=== PATIENT | male | born 1950 | race Caucasian/White ===

== ENCOUNTER 2017-08-29 11:10 | Inpatient (IN) ==
--- NOTE | 2017-08-28 21:08 | Discharge Summary ---
<Claire Curiel - Last Filed: 08/28/17 21:06> Date of Encounter: 08/28/17 - Discharge Diagnosis (1) Rotator cuff tear arthropathy of right shoulder Priority: Primary Status: Chronic (2) CAD (coronary artery disease) Priority: Secondary Status: Chronic Qualifiers: Coronary Disease-Associated Artery/Lesion type: unspecified vessel or lesion type [place] vs. transplanted heart: unspecified whether [place] or transplanted heart Associated angina: angina presence unspecified Qualified Code(s): I25.10 - Atherosclerotic heart disease of [place] coronary artery without angina pectoris (3) GERD (gastroesophageal reflux disease) Priority: Secondary Status: Chronic Qualifiers: Esophagitis presence: esophagitis presence not specified Qualified Code(s) : K21.9 - Gastro-esophageal reflux disease without esophagitis (4) Hypertension Priority: Secondary Status: Chronic Qualifiers: Hypertension type: unspecified Qualified Code(s): I10 - Essential (primary ) hypertension - Discharge Medications Home Medications: Aspirin Enteric Coated [Aspirin EC] 81 mg PO DAILY #30 tablet.dr 07/18/15 [Rx] Atorvastatin [Lipitor] 40 mg PO HS #30 tablet 07/18/15 [Rx] Lisinopril [Zestril] 10 mg PO DAILY #30 tablet 07/18/15 [Rx] Metoprolol [Lopressor] 25 mg PO BID #60 tablet 07/18/15 [Rx] Nitroglycerin [Nitrostat] 0.4 mg SL Q5-6MIN PRN #15 tab.subl 07/18/15 [Rx] OxyCODONE Immed Rel [Roxicodone 5 MG] 5 mg PO Q6HR PRN 7 Days #28 tablet [Rx] Omeprazole [PriLOSEC] 20 mg PO DAILY 08/29/17 [History] Potassium 99 mg PO DAILY 08/29/17 [History] Allergies/Adverse Reactions: 3 Allergy/AdvReac Type Severity Reaction Status Date / Time No Known Allergies Allergy Verified 08/29/17 13:08 Primary care physician: John Carranza - Patient Status Disposition: Home, Self-Care Condition: Good - Discharge Instructions Follow Up With: Claire Curiel PAC [Physician Bog Worker] - 09/06/17 9:15 am (& also, , September 13, 2017 at 2:00 PM) Gregory Loyola MD [Partnered Physician] - 09/26/17 5:55 pm John Carranza DO [Primary Care Provider] - Lillian Louie MD [Partnered Physician] - 11/09/17 2:15 pm - Hospital Course Hospital course: Mr. Peres is a 66 year old male - Time Spent with Patient Total time spent providing and/or coordinating discharge services: <Gregory Loyola - Last Filed: 08/30/17 09:32> Date of Encounter: 08/30/17 Time of Encounter: 09:32 - Discharge Diagnosis (1) Status post reverse total replacement of right shoulder Priority: Primary Status: Acute (2) NSTEMI (non-ST elevated myocardial infarction) Priority: Secondary Status: Chronic (3) Hypertension Priority: Secondary Status: Chronic Qualifiers: Hypertension type: unspecified Qualified Code(s): I10 - Essential (primary ) hypertension (4) GERD (gastroesophageal reflux disease) Priority: Secondary Status: Chronic Qualifiers: Esophagitis presence: without esophagitis Qualified Code(s): K21.9 - Gastro -esophageal reflux disease without esophagitis (5) Rotator cuff tear arthropathy of right shoulder Priority: Primary Status: Chronic (6) CAD (coronary artery disease) Priority: Secondary Status: Chronic Qualifiers: Coronary Disease-Associated Artery/Lesion type: unspecified vessel or lesion type [place] vs. transplanted heart: unspecified whether [place] or transplanted heart Associated angina: angina presence unspecified Qualified Code(s): I25.10 - Atherosclerotic heart disease of [place] coronary artery without angina pectoris (7) GERD (gastroesophageal reflux disease) Priority: Secondary Status: Chronic Qualifiers: Esophagitis presence: esophagitis presence not specified Qualified Code(s) : K21.9 - Gastro-esophageal reflux disease without esophagitis Primary care physician: John Carranza - Patient Status Functional capacity at discharge: independent ambulation Overall status at discharge: patient is progressing back to baseline - Hospital Course Hospital course: Mr. Peres is a 66 year old male Status post right total shoulder replacement The patient had an uneventful postoperative course. They received antibiotics and physical therapy and were discharged in stable condition. There will follow -up in the office in 2 weeks. - Time Spent with Patient Total time spent providing and/or coordinating discharge services:
--- NOTE | 2017-08-29 12:13 | Anesthesia Evaluation PreOp ---
Date of Encounter: 08/29/17 Time of Encounter: 12:11 - Past History Planned Operation: Right Total Shoulder Cardiac History: [place] ([place]), HTN, Cardiac Stent (x 1 2014 Mid [place]) Pulmonary History: Denies Any Significant HX [employer] History: Denies Any Significant HX Other Medical History: Denies Any Significant HX, GERD Anesthesia History: No Prior Anesthetic Complications, Past Anesthesia Alcohol Use: none Drug use: none Medications and Allergies Aspirin Enteric Coated [Aspirin EC] 81 mg PO DAILY #30 tablet. 07/18/15 [Rx] Atorvastatin [Lipitor] 40 mg PO HS #30 tablet 07/18/15 [Rx] Clopidogrel [Plavix] 75 mg PO DAILY #30 tablet 07/18/15 [Rx] Lisinopril [Zestril] 10 mg PO DAILY #30 tablet 07/18/15 [Rx] Metoprolol [Lopressor] 25 mg PO BID #60 tablet 07/18/15 [Rx] Nitroglycerin [Nitrostat] 0.4 mg SL Q5-6MIN PRN #15 tab.subl 07/18/15 [Rx] Pantoprazole Sodium [Protonix] 40 mg PO DAILY 30 Days tablet. 07/18/15 [Rx] OxyCODONE Immed Rel [Roxicodone 5 MG] 5 mg PO Q6HR PRN 7 Days #28 tablet [Rx] 3 Allergy/AdvReac Type Severity Reaction Status Date / Time No Known Allergies Allergy Verified 07/16/15 22:29 - Meds/Allergy Pre-op Review Medications Reviewed: Yes Allergies Reviewed: Yes Beta Blockers on Current Med List: No Anesthesia Results - Labs Laboratory Tests 08/13/17 08/13/17 08/13/17 15:21 15:21 15:21 WBC 4.4 Hgb 14.2 Hct 43.0 Plt Count 231 INR 1.0 Sodium 140 Potassium 4.1 Chloride 106 Carbon Dioxide 28 BUN 17 Creatinine 0.83 Echocardiogram Date of Study: 05/16/2016 Date: 1950 Impressions: LVEF 60%. Normal wall motion. Normal left ventricular size and systolic function. There is evidence of mild diastolic dysfunction of the left ventricle. Normal right ventricular size and function. Mild aortic regurgitation. Mild mitral regurgitation. Mild pulmonic regurgitation. Estimated RVSP was 19 mmHg. No pulmonary hypertension. Date of Study: 07/17/2015 LEFT HEART CATH Stent w/ PTCA Single Major Vessel Indications: Non-Stemi Impressions: There is severe one vessel coronary artery disease. The left ventricle is normal and has abnormal contractility EF 35% Patient had successful PTCA/Drug-Eluting Stent placement in the mid LAD. Recommendations: Optimal medical therapy of patient's disease. - Imaging EKG: report reviewed (SR) Anesthesia Exam Height: 5'10'' Weight: 171# NPO (# of Hours): > 8 hrs Pain Scale: 0 Pain Scale Used: Numeric (1 - 10) - HEENT Pupil (Motor): Pupils equal, EOMI Mallampati: II Teeth: Normal Oral Opening: Greater than 3 - [employer] LOC: Oriented [employer] Motor: Normal RUE, Normal LUE, Normal RLE, Normal LLE, Normal Face [employer] Sensory: Normal: RUE, LUE, RLE, LLE, Face - Cardiac Rhythm: Regular Murmur: None JVD: No Carotid Bruit: No - Pulmonary Breath Sounds: bilateral Clear Respiratory Effort: Symmetrical Anesthesia Assess/Plan ASA Score: 3 Modified Bryce Scale for Level of Consciousness: Cooperative, oriented, and tranquil Anesthetic Plan: General, Regional (Right Brachial Plexus Block) Monitoring Plan: Standard Monitors Recovery Plan: PACU
[2017-08-29] MEDS ORDERED: Lidocaine -MPF 1% 2 ML VIAL ID ONE (12:24)
[2017-08-29] MEDS ORDERED: CeFAZolin Syr 2,000MG/20 ML 2,000 MG/20 ML SYRINGE IVPB ONE (12:24)
[2017-08-29] MEDS ORDERED: Ringers Solution, Lactated 1,000 ML IVC SCH ×2 (12:30→18:30)
[2017-08-29] MEDS ORDERED: Scopolamine Patch 1.5 MG PATCH.TD72 TD ONE (13:23)
--- NOTE | 2017-08-29 14:02 | History & Physical Report ---
Date of Encounter: 08/29/17 Time of Encounter: 14:02 24 Hour HP Update - Instructions Instructions: If the History and Physical is less than 30 days old and was completed prior to A.M. admission and or procedure and has NOT been updated on calendar day of procedure please complete this update prior to performing procedure. - Update Patient reports changes in Medical Condition: No Changes in examination, assessment, or condition: No Changes in Medication: No Preop tests/diagnostics Reviewed: Yes Surgery Remains Indicated: Yes Consent for Planned Operative Procedure(s) Verified: Yes - Pre-Operative Checklist Preoperative Checklist Indicated: No Prophylactic Antibiotic Ordered: Yes Is VTE Prophylaxis Indicated?: Yes
[2017-08-29] MEDS ORDERED: *HR* Midazolam HCl 2 MG/2 ML VIAL ONE ×2 (15:32→17:16)
[2017-08-29] MEDS ORDERED: *HR* Propofol 200 MG/20 ML VIAL IVP ONE ×2 (15:32→17:16)
[2017-08-29] MEDS ORDERED: *HR* FentaNYL (PF) 100 MCG/2 ML VIAL ONE ×2 (15:32→17:16)
[2017-08-29] MEDS ORDERED: Lidocaine -MPF 2% 2 ML VIAL ONE ×2 (15:49→17:16)
[2017-08-29] MEDS ORDERED: ROPIVACAINE HCL/PF 0.5% 30 ML VIAL ONE (16:34)
--- NOTE | 2017-08-29 16:53 | Anesthesia Procedures ---
Date of Encounter: 08/29/17 Time of Encounter: 16:51 Procedures: Anesthesia - Nerve Block Procedure Date: 08/29/17 Time: 16:50 Allergies/Adv Reactions: nkda Pre-op Diagnosis: R shoulder RTC arthropathy Surgical Procedure: R TSR, reverse Checklist: Correct Patient Identifier, Correct procedure, History checked Correct side: Right Blood Thinner: No Monitor Applied: EKG, BP, Pulse Oximetry Supplemental Oxygen via Nasal Cannula (L/min): 3 Sedation: Versed (mg): 2 Sedation: Fentanyl (mcg): 100 Indication: Post Op Analgesia (requested by Dr. Loyola) Pre-op Neuro Deficits: No Block Type: Interscalene Catheter placed: No Sterile Technique: Yes Ultrasound used: Yes Anatomy identified: Yes Visual spread of Local: Yes Neuro Stimulation: Yes Nerve Stimulator Range: 0.2 - 0.4 mA Blood on Needle Aspiration: No Smooth Injection of Local: Yes Pain with Injection of Local: No Prep: Chlorhexadine Needle: 22 x 50 mm Stimuplex Local: Ropivacaine, Other (8mg dexamethasone) Volume (cc): 0.5%, 30mL Number of Attempts: 1 Complications: None/effective block Vitals: please see Kmaini BERGER's electronic documentation for VS entry
[2017-08-29] MEDS ORDERED: *HR* Succinylcholine 200 MG/10 ML VIAL IVP ONE (17:16)
[2017-08-29] MEDS ORDERED: Ondansetron 4 MG/2 ML VIAL ONE (17:16)
[2017-08-29] MEDS ORDERED: Dexamethasone 4 MG/ML VIAL ONE (17:18)
[2017-08-29] MEDS ORDERED: EPHEDrine 50 MG/ML VIAL ONE ×2 (17:19)
[2017-08-29] MEDS ORDERED: *HR* Promethazine 25 MG/ML VIAL IVP PRN (17:35)
[2017-08-29] MEDS ORDERED: *HR* HYDROmorphone (PF) 1 MG/ML SYRINGE IVP PRN ×2 (17:35→18:30)
--- NOTE | 2017-08-29 17:40 | Orthopedic Operative Note ---
Date of procedure: 08/29/17 Pre-op diagnosis: Right cuff tear arthropathy Post-op diagnosis: same Procedure: Procedure: Total Shoulder Replacment Reverse, right Estimated blood loss: 100 cc Hardware: Metal and polyethylene replacement: Arthrex large glenoid baseplate, 2 4.5 screws. 1 6.5 screw, 42+4 glenosphere, 10 humeral stem, poly insert 6 Exam Under anesthesia: Full motion and no instability Procedural Notes: Irreparable tear supraspinatus Operative procedure: The patient was brought to the operating room and placed on the operating room table. After general anesthesia was administered the operative shoulder was examined. Findings were noted. The patient was placed in the modified beachchair position. All pressure points were padded appropriately. And the head was stabilized in the neutral position. The operative extremity was prepped and draped in the sterile surgical fashion. The patient received IV antibiotics prior to skin incision. A standard deltopectoral approach was made to the operative shoulder. Incision was made to the skin and subcutaneous tissue,hemo stasis was obtained with Bovie cautery. Using careful blunt dissection the cephalic vein was identified and mobilized medially. The deltopectoral interval was developed and the clavipectoral fascia was incised. The subscap was released off the lesser tuberosity and tagged with #2 FiberWire suture that was irreparable. The humerus was dislocated patient noted to have irreparable tear supraspinatus tendon, and the humeral cut was made along the anatomic neck. Anterior and posterior Bankart retractors were placed to expose the glenoid. The glenoid guide was seated and the centering hole was made. It was reamed with the appropriate reamer. The large baseplate was seated and secured with (2) 4.5 screws and one 6.5 screw. The baseplate was irrigated and dried and the void 42+4 Glenosphere was seated and secured with the Irving taper. The Irving taper was tested and found to be secure the humerus was redislocated and prepared with the diaphyseal reamers, followed by a broaching process up to the appropriate size 10 in the patient's anatomic version. The metaphyseal reamer was then utilized. Trial reduction found the shoulder to be relocatable. Trial components were removed The appropriate 10 stem was impacted in place in the patient's anatomic version. Trial reduction found the shoulder to be relocatable and stable with the appropriate 6 Kadie Trial component was removed and the real implant was seated and secured the shoulder was reduced. The shoulder had excellent motion and excellent stability and no evidence of dislocation. The deep tissue was irrigated with pulse irrigation. The PA closed the shoulder. The deltopectoral interval was closed with a running #1 PDS suture, subcutaneous tissue was irrigated and closed with 0 PDS suture, the skin was closed with Dermabond. The patient was placed in a sterile dressing, abduction brace and extubated. The patient was then transferred to the recovery room in stable condition. Anesthesia: GETA Surgeon: Gregory Loyola Was there an school health assistant present: No Estimated blood loss (cc): 100 Condition: stable Disposition: PACU
[2017-08-29] MEDS ORDERED: Ketorolac 30 MG/ML VIAL ONE (17:47)
[2017-08-29] MEDS ORDERED: *HR* Enoxaparin 30 MG/0.3 ML SYRINGE SQ SCH (18:00)
[2017-08-29 18:19] LABS: Hematocrit 39.8 % (37.5-50.1); Hemoglobin 13.4 g/dL (12.9-16.9)
[2017-08-29] MEDS ORDERED: Sennosides 8.6 MG TABLET PO PRN (18:30)
[2017-08-29] MEDS ORDERED: *HR* OxyCODONE Immed Rel 5 MG TABLET PO PRN ×2 (18:30)
[2017-08-29] MEDS ORDERED: MOM Conc 10 ML UD.LIQ PO PRN (18:30)
[2017-08-29] MEDS ORDERED: Nitroglycerin 0.4 MG TAB.SUBL SL PRN (18:30)
[2017-08-29] MEDS ORDERED: Temazepam 15 MG CAPSULE PO PRN (18:30)
[2017-08-29] MEDS ORDERED: Naloxone 0.4 MG/ML INJ IVP PRN (18:30)
[2017-08-29] MEDS ORDERED: Ondansetron 4 MG/2 ML VIAL IVP PRN (18:30)
--- NOTE | 2017-08-29 18:50 | Anesthesia Evaluation Post Op ---
Date of Encounter: 08/29/17 Time of Encounter: 18:49 - Vital Signs Vital Signs: Last Vital Signs Temp 97.2 F L 08/29/17 18:26 Pulse 69 08/29/17 18:36 Resp 14 08/29/17 18:36 BP 132/75 08/29/17 18:36 Pulse Ox 95 08/29/17 18:36 - Lungs Lungs: Clear Ascult./Percussion - Airway Airway: Non-obstructed - Cardiovascular Regular Rate - Mental Status Mental Status: Alert & Oriented, Answers Appropriately - Pain Pain Scale: 3 - Nausea Vomiting Nausea Vomiting: Not Present - Hydration Hydration: Ice chips - Discharge PostOp Status: Transfer Patient to floor
[2017-08-29] MEDS ORDERED: CeFAZolin Premix DUPLEX 2,000 MG/50 ML BAG IVPB SCH (20:00)
[2017-08-30] MEDS: CeFAZolin Premix DUPLEX 2,000 MG/50 ML BAG IVPB SCH ×2 (00:30→08:36)
[2017-08-30 05:56] LABS: Hematocrit 34.2 % (37.5-50.1)
[2017-08-30] MEDS ORDERED: *HR* Enoxaparin 30 MG/0.3 ML SYRINGE SQ SCH (06:00)
[2017-08-30 06:02] LABS: Hemoglobin 11.2 g/dL (12.9-16.9)
[2017-08-30 07:27] VITALS: BP 125/68
[2017-08-30] MEDS ORDERED: Aspirin Enteric Coated 81 MG Tablet PO SCH (09:00)
[2017-08-30] MEDS ORDERED: (Potassium [Potassium] 99 MG) PO SCH (09:00)
--- NOTE | 2017-08-30 09:33 | Orthopedics Progress Note ---
Date of Encounter: 08/30/17 Time of Encounter: 09:32 - Assessment and Plan (1) Status post reverse total replacement of right shoulder Current Visit: Yes Status: Acute (2) NSTEMI (non-ST elevated myocardial infarction) Current Visit: No Status: Chronic (3) Hypertension Current Visit: No Status: Chronic Qualifiers: Hypertension type: unspecified Qualified Code(s): I10 - Essential (primary ) hypertension (4) GERD (gastroesophageal reflux disease) Current Visit: No Status: Chronic Qualifiers: Esophagitis presence: esophagitis presence not specified Qualified Code(s) : K21.9 - Gastro-esophageal reflux disease without esophagitis (5) Rotator cuff tear arthropathy of right shoulder Current Visit: No Status: Chronic (6) CAD (coronary artery disease) Current Visit: No Status: Chronic Qualifiers: Coronary Disease-Associated Artery/Lesion type: unspecified vessel or lesion type [place] vs. transplanted heart: unspecified whether [place] or transplanted heart Associated angina: angina presence unspecified Qualified Code(s): I25.10 - Atherosclerotic heart disease of [place] coronary artery without angina pectoris (7) GERD (gastroesophageal reflux disease) Current Visit: No Status: Chronic Qualifiers: Esophagitis presence: esophagitis presence not specified Qualified Code(s) : K21.9 - Gastro-esophageal reflux disease without esophagitis Subjective Interval history: Patient was seen this morning doing well without complaints. Afebrile vital signs stable. Operative extremity: Neurovascularly intact Dressing clean dry and intact Calves nontender Assessment and plan: Continue with postoperative care Discharged today Objective Vital signs: Vital Signs Temp Pulse Resp BP Pulse Ox 08/30/17 07:24 98.4 F 68 16 125/68 94 08/30/17 04:08 97.7 F 71 17 118/62 95 08/29/17 23:26 97.7 F 96 18 107/55 95 08/29/17 21:45 97.6 F 62 17 128/78 96 08/29/17 19:25 97.2 F L 73 17 144/79 95 08/29/17 18:52 97.5 F L 66 16 144/83 94 08/29/17 18:36 69 14 132/75 95 08/29/17 18:26 97.2 F L 75 16 135/79 96 08/29/17 18:16 90 12 135/81 97 08/29/17 18:06 118 14 136/82 98 08/29/17 17:56 97.5 F L 88 14 101/56 97 08/29/17 16:35 61 12 148/84 99 08/29/17 12:28 97.4 F L 68 18 153/80 98 08/29/17 12:14 97.4 F L 68 18 153/80 98 Intake and Output 08/29/17 08/30/17 08/30/17 23:59 07:59 15:59 Intake Total 50 / 50 Output Total 100 / 100 Balance -100 / -100 50 / 50 Intake: IV Fluids 50 / 50 Ancef Premix DUPLEX 2,000 mg In 50 / 50 50 ml @ 100 mls/hr IVPB Q8HR [facility] Rx#:[id number] Output: Urine 0 / 0 Estimated Blood Loss 100 / 100 - Labs CBC & BMP: 08/30/17 05:10 Labs: Abnormal lab results Hgb 11.2 g/dL (12.9-16.9) L D 08/30/17 05:10 Hct 34.2 % (37.5-50.1) L 08/30/17 05:10 - VTE Documentation of Mechanical Device: Venous foot pump, device Consult Discharge Plan - Plan Referrals: Claire Curiel, PAC [Physician Online Project Manager] - 09/06/17 9:15 am (& also, September at 2:00 PM) Gregory Loyola MD [Partnered Physician] - 09/26/17 5:55 pm John Carranza DO [Primary Care Provider] - Lillian Louie MD [Partnered Physician] - 11/09/17 2:15 pm
== END 2017-08-30 12:40 | disposition home or self-care (01) | DRG 483 ==
LOC: SAMDAY 11:10 → 3NENU 18:29
PROVIDERS: ADMIT Orthopaedic Surgery; ATTEND Orthopaedic Surgery

== ENCOUNTER 2018-12-19 11:08 | Inpatient (IN) ==
--- NOTE | 2018-12-19 11:18 | History & Physical Report ---
Date of Encounter: 12/19/18 Time of Encounter: 11:18 24 Hour HP Update - Instructions Instructions: If the History and Physical is less than 30 days old and was completed prior to A.M. admission and or procedure and has NOT been updated on calendar day of procedure please complete this update prior to performing procedure. - Update Patient reports changes in Medical Condition: No Changes in examination, assessment, or condition: No Changes in Medication: No Preop tests/diagnostics Reviewed: Yes Surgery Remains Indicated: Yes Consent for Planned Operative Procedure(s) Verified: Yes - Pre-Operative Checklist Preoperative Checklist Indicated: No Prophylactic Antibiotic Ordered: Yes Is VTE Prophylaxis Indicated?: Yes
--- NOTE | 2018-12-19 11:26 | Anesthesia Evaluation PreOp ---
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, knee replacement, right TSR reverse, hardware removal left ankle) Alcohol Use: none Drug use: none Medications and Allergies RX: Aspirin Enteric Coated [Aspirin EC] 81 mg PO DAILY #30 tablet.dr 07/18/15 [Rx] RX: Atorvastatin [Lipitor] 40 mg PO HS #30 tablet 07/18/15 [Rx] RX: Lisinopril [Zestril] 10 mg PO DAILY #30 tablet 07/18/15 [Rx] RX: Metoprolol [Lopressor] 25 mg PO BID #60 tablet 07/18/15 [Rx] RX: Nitroglycerin [Nitrostat] 0.4 mg SL Q5-6MIN PRN #15 tab.subl 07/18/15 [Rx] RX: OxyCODONE Immed Rel [Roxicodone 5 MG] 5 mg PO Q6HR PRN 7 Days #28 tablet 08/28/17 [Rx] RX: Omeprazole [PriLOSEC] 20 mg PO DAILY 08/29/17 [History] RX: Potassium 99 mg PO DAILY 08/29/17 [History] Allergy/AdvReac Type Severity Reaction Status Date / Time No Known Allergies Allergy Verified 08/29/17 13:08 - Meds/Allergy Pre-op Review Medications Reviewed: Yes Allergies Reviewed: Yes Beta Blockers on Current Med List: No Anesthesia Results - Labs Laboratory Tests 12/11/18 12/11/18 10:54 10:54 WBC 5.6 Hgb 14.0 Hct 42.8 Plt Count 265 Sodium 140 Potassium 4.3 Chloride 104 Carbon Dioxide 25 BUN 18 Creatinine 0.83 Est GFR ( Amer) > 60 Est GFR (Non-Af Amer) > 60 BUN/Creatinine Ratio 22 Glucose 116 H Calculated Osmolality 293 Calcium 9.6 - Imaging EKG: report reviewed, image reviewed (SR) Additional studies: 2016 TTE: Indications: Coronary artery disease Impressions: LVEF 60%. Normal wall motion. Normal left ventricular size and systolic function. There is evidence of mild diastolic dysfunction of the left ventricle. Normal right ventricular size and function. Mild aortic regurgitation. Mild mitral regurgitation. Mild pulmonic regurgitation. Estimated RVSP was 19 mmHg. No pulmonary hypertension. The IVC is not dilated. Anesthesia Exam Weight: 81 kg NPO (# of Hours): > 8 hrs - HEENT Pupil (Motor): Pupils equal, EOMI Mallampati: III Teeth: Poor dentition Oral Opening: Greater than 3 - COURT MONITOR LOC: Oriented COURT MONITOR Motor: Normal RUE, Normal LUE, Normal RLE, Normal LLE, Normal Face - Cardiac Rhythm: Regular Murmur: None - Pulmonary Breath Sounds: bilateral Clear Respiratory Effort: Symmetrical Anesthesia Assess/Plan ASA Score: 3 Level of consciousness: Cooperative Anesthetic Plan: General, Regional Nerve Block Regional Nerve Block Plan: Supraclavicular Monitoring Plan: Standard Monitors Recovery Plan: PACU
[2018-12-19] MEDS ORDERED: *HR* Promethazine 25 MG/ML VIAL IVP PRN (11:41)
[2018-12-19] MEDS ORDERED: *HR* OxyCODONE Immed Rel 5 MG TABLET PO PRN ×2 (11:41→17:20)
[2018-12-19] MEDS ORDERED: Albuterol 2.5 MG/3 ML NEBULIZER IH ONE (11:41)
[2018-12-19] MEDS ORDERED: CeFAZolin Syr 2,000MG/20 ML 2,000 MG/20 ML SYRINGE IVPB ONE (12:02)
--- NOTE | 2018-12-19 12:13 | Discharge Summary ---
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 transplanted heart: unspecified whether [place] or transplanted heart Associated angina: angina presence unspecified Qualified Code(s): I25.10 - Atherosclerotic heart disease of [place] coronary artery without angina pectoris (4) GERD (gastroesophageal reflux disease) Priority: Secondary Status: Chronic Qualifiers: Esophagitis presence: esophagitis presence not specified Qualified Code(s): K21.9 - Gastro-esophageal reflux disease without esophagitis (5) Hypertension Priority: Secondary Status: Chronic Qualifiers: Hypertension type: essential hypertension Qualified Code(s): I10 - Essential (primary) hypertension (6) NSTEMI (non-ST elevated myocardial infarction) Priority: Secondary Status: Chronic - Hospital Course Hospital course: Mr. Peres is a 68 year old male - Time Spent with Patient Total time spent providing and/or coordinating discharge services: - Discharge Medications Prescriptions: New OxyCODONE Immed Rel [Roxicodone 5 MG] 5 mg PO Q6HR PRN 5 Days #20 tablet PRN Reason: Pain Continue Aspirin Enteric Coated [Aspirin EC] 81 mg PO DAILY #30 tablet. Omeprazole [PriLOSEC] 20 mg PO DAILY Potassium 99 mg PO DAILY Amlodipine Besylate 10 mg PO DAILY Fluticasone Propionate Nasal [Flonase] 2 spr NS DAILY PRN PRN Reason: Allergy Symptoms Losartan Potassium 100 mg PO DAILY Multivitamin [One Daily] 1 tab PO DAILY Cetirizine HCl [Zyrtec] 10 mg PO DAILY Atorvastatin Calcium [Lipitor] 20 mg PO HS Home Medications: Aspirin Enteric Coated [Aspirin EC] 81 mg PO DAILY #30 tablet. 07/18/15 [Rx] Omeprazole [PriLOSEC] 20 mg PO DAILY 08/29/17 [History] Potassium 99 mg PO DAILY 08/29/17 [History] Amlodipine Besylate 10 mg PO DAILY 12/19/18 [History] Atorvastatin Calcium [Lipitor] 20 mg PO HS 12/19/18 [History] Cetirizine HCl [Zyrtec] 10 mg PO DAILY 12/19/18 [History] Fluticasone Propionate Nasal [Flonase] 2 spr NS DAILY PRN 12/19/18 [History] Losartan Potassium 100 mg PO DAILY 12/19/18 [History] Multivitamin [One Daily] 1 tab PO DAILY 12/19/18 [History] OxyCODONE Immed Rel [Roxicodone 5 MG] 5 mg PO Q6HR PRN 5 Days #20 tablet 12/19/18 [Rx] Allergies/Adverse Reactions: Allergy/AdvReac Type Severity Reaction Status Date / Time No Known Allergies Allergy Verified 12/19/18 19:13 Primary care physician: John Carranza - Patient Status Disposition: Home, Self-Care Condition: Good - Discharge Instructions Follow Up With: John Carranza, [Primary Care Provider] - <Claire Diamond - Last Filed: 12/20/18 13:24> Orders not resulted at time of discharge: Pending orders 12/19/18 11:42 US anesthesia pain block [US] Stat 12/19/18 13:22 Culture,Anaerobic [RM] Routine Culture,Wound [RM] Routine 12/19/18 15:29 Surgical Pathology [PTH] Routine 12/21/18 04:00 Basic Metabolic Panel DAILY Hemoglobin and Hematocrit [HEME] DAILY Date of Encounter: 12/20/18 Time of Encounter: 11:40 - Discharge Diagnosis (1) Loosening of total shoulder replacement Priority: Primary Status: Acute Qualifiers: Encounter type: subsequent encounter Qualified Code(s): T84.038D - Mechanical loosening of other internal prosthetic joint, subsequent encounter; Z96.619 - Presence of unspecified artificial shoulder joint (2) CAD (coronary artery disease) Priority: Secondary Status: Chronic Qualifiers: Coronary Disease-Associated Artery/Lesion type: [place] artery [place] vs. transplanted heart: unspecified whether [place] or transplanted heart Associated angina: angina presence unspecified Qualified Code(s): I25.10 - Atherosclerotic heart disease of [place] coronary artery without angina pectoris (3) GERD (gastroesophageal reflux disease) Priority: Secondary Status: Chronic Qualifiers: Esophagitis presence: esophagitis presence not specified Qualified Code(s): K21.9 - Gastro-esophageal reflux disease without esophagitis (4) Hypertension Priority: Secondary Status: Chronic Qualifiers: Hypertension type: essential hypertension Qualified Code(s): I10 - Essential (primary) hypertension (5) Status post reverse total replacement of right shoulder Priority: Primary Status: Chronic - Hospital Course Hospital course: Mr. Peres is a 68 year old male status post Right TSR reverse revision 12/19/18 with medical history of HTN, GERD, CAD. Due to revision he is to have no sh oulder motion, he did participated in therapy. He had an uneventful hospital course. Stable for discharge. Patient seen at bedside, without complaints. A&O x 3 Afebrile, vital signs stable. Labs reviewed. H/H - 11.0/33.2 stable, asymptomatic Pain control: adequate Participating in PT. NO SHOULDER MOTION, ok for gentle elbow and wrist motion. Wear brace at all times only removing for hygiene purposes. All questions and concerns addressed. Educated on use of incentive spirometer. Encouraged ambulation and proper hydration. Patient educated on post-operative restrictions and post-operative care. Assessment and plan: Continue with postoperative care Discharge plan: Home , discharge today. - Time Spent with Patient Total time spent providing and/or coordinating discharge services: Date of admission: 12/19/18 16:50 Primary care physician: John Carranza Consults: 12/19/18 17:20 Consult to Physical Therapy [CONS] Routine Comment: post shoulder surgery Reason for Consult: post shoulder surgery Does patient have active BEDREST order?: No Is patient medically & hemodynamically stable?: Yes Consult to Hl7 Interface Developer [CONS] Routine Reason for SW Consult: shoulder surgery RT Post Op Consult [CONS] Routine Discharging clinician: Gregory Loyola Anticipated date of discharge: 12/20/18 Labs on day of discharge: Labs from last 24 hours 12/20/18 12/20/18 12/19/18 03:49 03:49 15:49 Hgb 11.0 L 12.2 L Hct 33.2 L 36.7 L Sodium 139 Potassium 4.2 Chloride 107 Carbon Dioxide 26 BUN 21 Creatinine 0.80 Est GFR ( Amer) > 60 Est GFR (Non-Af Amer) > 60 BUN/Creatinine Ratio 26 Glucose 143 H Calculated Osmolality 293 Calcium 8.4 L Preliminary micro results at discharge 12/19/18 13:22 Wound Culture - Preliminary Surgery Culture is incubating. 12/19/18 13:22 Anaerobic Culture - Preliminary Surgery Culture is incubating. Short CBC 12/20/18 12/19/18 Range/Units 03:49 15:49 Hgb 11.0 L 12.2 L (12.9-16.9) g/dL Hct 33.2 L 36.7 L (37.5-50.1) % BMP 12/20/18 Range/Units 03:49 Sodium 139 (136-145) mEq/L Potassium 4.2 (3.5-5.1) mEq/L Chloride 107 (98-107) mEq/L Carbon Dioxide 26 (23-29) mEq/L BUN 21 (8-23) mg/dL Creatinine 0.80 (0.70-1.30) mg/dL Glucose 143 H (70-105) mg/dL Calcium 8.4 L (8.6-10.3) mg/dL - Impressions ITS Impressions Shoulder X-Ray 12/19/18 11:18 IMPRESSION: Normal/expected postsurgical appearance after right shoulder reverse arthroplasty. D/ / Sin Bain MD / Sin Bain MD Interpreting Provider: Sin Bain MD - Patient Status Functional capacity at discharge: independent ambulation Overall status at discharge: patient is back to baseline - Diet and Activity Activity: as per physical therapy Diet: advance to your usual diet
[2018-12-19] MEDS ORDERED: Ringers Solution, Lactated 1,000 ML IVC SCH ×2 (12:15→17:20)
[2018-12-19] MEDS ORDERED: *HR* FentaNYL (PF) 100 MCG/2 ML VIAL ONE ×2 (12:23→12:42)
[2018-12-19] MEDS ORDERED: *HR* Succinylcholine 200 MG/10 ML VIAL IVP ONE (12:23)
[2018-12-19] MEDS ORDERED: *HR* Propofol 200 MG/20 ML VIAL IVP ONE ×2 (12:23→12:42)
[2018-12-19] MEDS ORDERED: *HR* Midazolam HCl 2 MG/2 ML VIAL ONE ×2 (12:23→12:47)
[2018-12-19] MEDS ORDERED: Lidocaine -MPF 2% 2 ML VIAL ONE ×2 (12:23→12:41)
[2018-12-19] MEDS ORDERED: Dexamethasone 4 MG/ML VIAL ONE ×2 (12:23→12:41)
[2018-12-19] MEDS ORDERED: Ondansetron 4 MG/2 ML VIAL ONE ×2 (12:23→12:41)
[2018-12-19] MEDS ORDERED: Ethanol\\Acetic Acid\\Na Ace\\Ben 1,000 ML IRRIG.SOLN IR ONE (12:30)
[2018-12-19] MEDS ORDERED: ROPIVACAINE/PF/NS SYRINGE INTRAART ONE (12:33)
[2018-12-19] MEDS ORDERED: ROPIVACAINE HCL/PF 0.5% 30 ML VIAL ONE (12:33)
[2018-12-19] MEDS ORDERED: Lidocaine -MPF 4% 5 ML AMPUL ONE (12:41)
[2018-12-19] MEDS ORDERED: *HR* Rocuronium Bromide 50 MG/5 ML VIAL ONE (12:41)
[2018-12-19] MEDS ORDERED: EPHEDrine 50 MG/ML VIAL ONE (13:20)
--- NOTE | 2018-12-19 13:25 | Anesthesia Procedures ---
Date of Encounter: 12/19/18 Time of Encounter: 12:45 Procedures: Anesthesia - Nerve Block Procedure Date: 12/19/18 Time: 12:45 Allergies/Adv Reactions: [id number] Pre-op Diagnosis: Right shoulder pain Surgical Procedure: Right reverse total shoulder revision Checklist: Correct Patient Identifier, Correct procedure, History checked Correct side: Right Blood Thinner: No Monitor Applied: EKG, BP, Pulse Oximetry Supplemental Oxygen via Nasal Cannula (L/min): 2 Sedation: Versed (mg): 2 Sedation: Fentanyl (mcg): 100 Indication: Post Op Analgesia Pre-op Neuro Deficits: No Block Type: Supraclavicular Sterile Technique: Yes Ultrasound used: Yes Anatomy identified: Yes Visual spread of Local: Yes Neuro Stimulation: No Blood on Needle Aspiration: No Smooth Injection of Local: Yes Pain with Injection of Local: No Prep: Chlorhexadine Needle: 22 x 50 mm Stimuplex Local: Ropivacaine Volume (cc): 30 Number of Attempts: 1 Complications: None/effective block Vitals: Last Vital Signs Temp 97.7 F 12/19/18 11:43 Pulse 66 12/19/18 12:51 Resp 18 12/19/18 11:43 BP 144/81 12/19/18 12:51 Pulse Ox 97 12/19/18 12:51
[2018-12-19] MEDS ORDERED: Propofol 500 MG/50 ML INFUS..BTL ONE (13:59)
[2018-12-19] MEDS ORDERED: *HR* PHENYLEPHRINE 1,000 MCG/10 ML SYRINGE IVP ONE (15:02)
--- NOTE | 2018-12-19 15:35 | Orthopedic Operative Note ---
Date of procedure: 12/19/18 Pre-op diagnosis: Aseptic loosening right total shoulder Post-op diagnosis: same Procedure: Procedure: Right Revision Total Shoulder replacement reverse Estimated blood loss: 200 cc Hardware: Arthrex: Metal and plastic replacement: Baseplate: 24, +4, 35 mm screw. 4 locking 5.5 screws, 42+4, 12 apex humeral stem, 6 metal spacer 3 Kadie spacer Procedural Notes: Patient with failure of fixation of the glenoid component with fracture of inferior screw. Patient's central screw was well fixed would not rotate was broken off during extraction. Operative procedure: The patient was brought to the operating room and placed on the operating room table. The patient was placed in the modified beachchair position. All pressure points were padded appropriately. And the head was stabilized in the neutral position. The operative extremity was prepped and draped in the sterile surgical fashion. The patient received IV antibiotics prior to skin incision. A standard deltopectoral approach was made to the operative shoulder. Incision was made to the skin and subcutaneous tissue,hemo stasis was obtained with Bovie cautery. Using careful blunt dissection the cephalic vein was identified and mobilized medially. The deltopectoral interval was developed and the clavipectoral fascia was incised. An extensive debridement was performed, and the shoulder was dislocated. The humeral metaphysis was dissociated from the diaphysis of the stem, diaphysis was removed without bone loss. The humerus was broached in 20 degrees of retroversion up to a size 12 apex. Attention was then turned to the baseplate. The glenoid sphere was removed without incident, the inferior screw is broken and removed the superior screws broken and removed attempt to try and the central screw unsuccessful multiple times. The baseplate was meticulously removed with osteotomes ari. The central screw broke and remained within the glenoid vault. Afebrile screws removed with the broken screw removal set. The wound was irrigated the guidepin was placed for the glenoid baseplate was overreamed and overdrilled and tapped. A 24, +4, 35 mm screw was placed into the glenoid over the guidewire after the void in the superior aspect of the glenoid was filled with bone stimulating protein and cancellus chips. The baseplate was secured with 4, 5.5 locking screws. The baseplate was irrigated and dried and the sphere 42+4 was seated and secured with the [place] taper and the central screw. Trial reduction found the shoulder to be relocatable was seen metal 6 spacer and the 3 Kadie spacer. Trial components were removed, real implants were seated and secured and the shoulder was reduced. The patient had excellent motion and excellent stability no shuck. The deep tissue was irrigated with pulse irrigation deltopectoral interval was closed with #2 PDS suture. Superficially the subcutaneous tissue was closed with 0 PDS suture, the skin was closed with skin corinna The patient placed sterile dressing, postoperative brace extubated and transferred to the recovery room in stable condition. Anesthesia: GETA Surgeon: Gregory Loyola Was there an engineering assistant present: No Estimated blood loss (cc): 200 Condition: stable Disposition: PACU
[2018-12-19 16:25] LABS: Hematocrit 36.7 % (37.5-50.1); Hemoglobin 12.2 g/dL (12.9-16.9)
[2018-12-19] MEDS ORDERED: Ondansetron 4 MG/2 ML VIAL IVP PRN (17:20)
[2018-12-19] MEDS ORDERED: Fluticasone Propionate Nasal 50 MCG/SPRAY BOTTLE NS PRN (17:20)
[2018-12-19] MEDS ORDERED: Sennosides 8.6 MG TABLET PO PRN (17:20)
[2018-12-19] MEDS ORDERED: MOM Conc 10 ML UD.LIQ PO PRN (17:20)
[2018-12-19] MEDS ORDERED: Temazepam 15 MG CAPSULE PO PRN (17:20)
--- NOTE | 2018-12-19 17:29 | Anesthesia Evaluation Post Op ---
Date of Encounter: 12/19/18 Time of Encounter: 16:30 - Vital Signs Vital Signs: Vital Signs/O2 Sat/Glucose, Most Current Temp Pulse Resp BP Pulse Ox 12/19/18 16:26 97.6 F 85 12 114/64 96 12/19/18 16:16 90 14 112/65 96 12/19/18 16:06 97.8 F 86 14 116/70 96 12/19/18 15:56 82 12 106/60 95 12/19/18 15:46 78 12 87/56 98 12/19/18 15:36 97.2 F L 76 16 100/52 97 - Airway Airway: Non-obstructed - Cardiovascular Baseline Rhythm - Mental Status Mental Status: Alert & Oriented, Answers Appropriately - Pain Pain Scale: 0 Pain Scale used: Numeric (1 - 10) - Nausea Vomiting Nausea Vomiting: Not Present - Hydration Hydration: Tolerates oral liquids - Discharge PostOp Status: Transfer Patient to floor Anes Supervising Prov Stmt: Pt seen/evaluated, VSS and has met criteria for discharge to floor. - MD Paula
[2018-12-19] MEDS ORDERED: *HR* Enoxaparin 30 MG/0.3 ML SYRINGE SQ SCH (18:00)
[2018-12-19] MEDS: traMADol 50 MG TABLET PO PRN (18:03)
[2018-12-19] MEDS: *HR* Enoxaparin 30 MG/0.3 ML SYRINGE SQ SCH (18:04)
[2018-12-20] MEDS: *HR* OxyCODONE/APAP 5/325 TABLET PO PRN ×3 (01:15→14:05)
[2018-12-20 04:28] LABS: Hematocrit 33.2 % (37.5-50.1)
[2018-12-20 04:44] LABS: BUN/Creatinine Ratio 26 (6-26); Blood Urea Nitrogen 21 mg/dL (8-23); Calcium 8.4 mg/dL (8.6-10.3); Carbon Dioxide 26 mEq/L (23-29); Chloride 107 mEq/L (98-107); Glucose 143 mg/dL (70-105); Osmolality,Calculated 293 (280-300); Potassium 4.2 mEq/L (3.5-5.1); Sodium 139 mEq/L (136-145); eGFR For Non-African Americans > 60 (> 60)
[2018-12-20] MEDS: traMADol 50 MG TABLET PO PRN (06:20)
[2018-12-20] MEDS: *HR* Enoxaparin 30 MG/0.3 ML SYRINGE SQ SCH (06:20)
--- NOTE | 2018-12-20 06:26 | Orthopedics Progress Note ---
Date of Encounter: 12/20/18 Time of Encounter: 06:26 - Assessment and Plan (1) Loosening of total shoulder replacement Current Visit: Yes Status: Chronic Qualifiers: Encounter type: subsequent encounter Qualified Code(s): T84.038D - Mechanical loosening of other internal prosthetic joint, subsequent encounter; Z96.619 - Presence of unspecified artificial shoulder joint (2) Status post reverse total replacement of right shoulder Current Visit: No Status: Chronic (3) CAD (coronary artery disease) Current Visit: No Status: Chronic Qualifiers: Coronary Disease-Associated Artery/Lesion type: [place] artery [place] vs. transplanted heart: unspecified whether [place] or transplanted heart Associated angina: angina presence unspecified Qualified Code(s): I25.10 - Atherosclerotic heart disease of [place] coronary artery without angina pectoris (4) GERD (gastroesophageal reflux disease) Current Visit: No Status: Chronic Qualifiers: Esophagitis presence: esophagitis presence not specified Qualified Code(s): K21.9 - Gastro-esophageal reflux disease without esophagitis (5) Hypertension Current Visit: No Status: Chronic Qualifiers: Hypertension type: essential hypertension Qualified Code(s): I10 - Essential (primary) hypertension (6) NSTEMI (non-ST elevated myocardial infarction) Current Visit: No Status: Chronic Subjective Interval history: Patient was seen this morning doing well without complaints. Afebrile vital signs stable. Operative extremity: Neurovascularly intact Dressing clean dry and intact Calves nontender Assessment and plan: Continue with postoperative care Plan for discharged Objective Vital signs: Vital Signs Temp Pulse Resp BP Pulse Ox 12/20/18 04:37 97.9 F 77 16 118/76 94 12/19/18 17:23 97.9 F 85 14 128/88 98 12/19/18 17:00 97.9 F 94 16 133/66 99 12/19/18 16:30 97.6 F 82 13 116/67 98 12/19/18 16:26 97.6 F 85 12 114/64 96 12/19/18 16:16 90 14 112/65 96 12/19/18 16:06 97.8 F 86 14 116/70 96 12/19/18 15:56 82 12 106/60 95 12/19/18 15:46 78 12 87/56 98 12/19/18 15:36 97.2 F L 76 16 100/52 97 12/19/18 12:51 66 144/81 97 12/19/18 12:35 71 136/73 99 12/19/18 11:43 97.7 F 69 18 134/76 96 Intake and Output 12/19/18 12/19/18 12/20/18 15:59 23:59 07:59 Intake Total 20 / 20 Output Total 200 / 200 Balance -180 / -180 Intake: IV Fluids 20 / 20 Ancef Syringe 2,000 MG/20 ML 2, 20 / 20 000 mg In 20 ml @ 200 mls/hr IVPB PREOP ONE Rx#:[id number] Output: Estimated Blood Loss 200 / 200 Other: Weight 80.739 kg - Labs CBC & BMP: 12/20/18 03:49 12/20/18 03:49 Labs: Abnormal lab results Hgb 11.0 g/dL (12.9-16.9) L 12/20/18 03:49 Hct 33.2 % (37.5-50.1) L 12/20/18 03:49 Glucose 143 mg/dL (70-105) H 12/20/18 03:49 Calcium 8.4 mg/dL (8.6-10.3) L 12/20/18 03:49 Consult Discharge Plan - Plan Referrals: John Carranza DO [Primary Care Provider] -
[2018-12-20] MEDS ORDERED: Loratadine 10 MG TABLET PO SCH (09:00)
[2018-12-20] MEDS ORDERED: amLODIPine 5 MG TABLET PO SCH (09:00)
[2018-12-20] MEDS ORDERED: Aspirin Enteric Coated 81 MG Tablet PO SCH (09:00)
[2018-12-20] MEDS ORDERED: Potassium Chloride Elixir 20 MEQ/15 ML UDC PO SCH (09:00)
[2018-12-20] MEDS ORDERED: Multivit/Ca/Min/Fe/FA 1 TAB TABLET PO SCH (09:00)
[2018-12-20 14:15] VITALS: BP 136/73
== END 2018-12-20 16:53 | disposition home or self-care (01) | DRG 483 ==
LOC: SAMDAY 11:08 → 3NENU 16:50
PROVIDERS: ADMIT Orthopaedic Surgery; ATTEND Orthopaedic Surgery

== ENCOUNTER 2019-05-30 17:31 | Observation (INO) ==
[2019-05-30 17:49] LABS: Basophils % 1.1 %
[2019-05-30 17:51] LABS: Hematocrit 39.8 % (37.5-50.1); Immature Granulocytes % 0.5 % (0-4); Lymphocytes # 0.4 K/mcL (0.6-4.6); Lymphocytes % 20.1 %; Mean Corpuscular HGB Conc 32.7 g/dL (31.6-35.5); Mean Corpuscular Hemoglobin 29.1 pg (28.0-33.3); Mean Platelet Volume 9.6 fL (9.4-12.4); Monocytes # 0.2 K/mcL (0.0-1.3); Monocytes % 10.1 %; Neutrophils # 1.3 K/mcL (1.6-8.9); Platelet Count 108 K/mcL (140-400); Red Blood Count 4.47 M/mcL (4.19-5.50); Red Cell Distribution Width 13.8 % (11.5-14.5); Segmented Neutrophils % 68.2 %; White Blood Count 1.9 K/mcL (4.3-11.1)
[2019-05-30 17:56] LABS: INR 1.2; Prothrombin Time 13.3 Seconds (9.4-12.1)
[2019-05-30 17:59] LABS: Activated Partial Thrombo Time 30.1 Seconds (26.0-36.0)
[2019-05-30 18:11] LABS: BUN/Creatinine Ratio 12 (6-26); Blood Urea Nitrogen 11 mg/dL (8-23); Calcium 8.6 mg/dL (8.6-10.3); Carbon Dioxide 27 mEq/L (23-29); Chloride 100 mEq/L (98-107); Glucose 127 mg/dL (70-105); Osmolality,Calculated 275 (280-300); Potassium 4.3 mEq/L (3.5-5.1); Sodium 132 mEq/L (136-145); Troponin I < 0.03 ng/mL (< 0.04); eGFR For African Americans > 60 (> 60); eGFR For Non-African Americans > 60 (> 60)
[2019-05-30 18:15] LABS: Reactive Lymphocytes Present (Not Present)
[2019-05-30] MEDS ORDERED: Ondansetron 4 MG/2 ML VIAL IVP ONE (18:40)
[2019-05-30] MEDS ORDERED: 0.9 % Sodium Chloride 1,000 ML IVC ONE (18:40)
[2019-05-30] MEDS ORDERED: Isovue-370 500 ML BOTTLE IVP ONE (18:43)
[2019-05-30 19:25] LABS: Albumin 3.8 g/dL (3.5-5.7); Albumin/Globulin Ratio 1.2 (1.1-2.2); Bilirubin,Indirect 0.5 mg/dL (0.0-1.2); Bilirubin,Total 1.5 mg/dL (0.3-1.0); Globulin 3.1 g/dL (2.4-3.5); Total Protein 6.9 g/dL (6.4-8.9)
[2019-05-30 19:59] LABS: Bilirubin,Urine Small (Negative); Blood,Urine Negative (Negative); Clarity,Urine Clear (Clear); Color,Urine Dark Yellow (Yellow); Glucose,Urine (UA) Normal (Normal); Ketones,Urine Negative (Negative); Leukocyte Esterase,Urine Negative (Negative); Nitrite,Urine Negative (Negative); Protein,Urine 30 mg/dL (Neg-Trace); Specific Gravity,Urine > 1.030 (1.010-1.025); Urobilinogen,Urine Normal (Normal)
[2019-05-30 20:13] LABS: Bacteria,Urine Few per hpf (None-Few); Squamous Epithelial Cell,Urine Few per lpf (None-Few)
[2019-05-30] MEDS ORDERED: Cefepime HCl 1,000 MG in Water for inj. (sterile) 10 ML IVP STA (20:54)
[2019-05-30 22:10] LABS: Folate 17.5 ng/mL (3.0-16.0)
[2019-05-30] MEDS ORDERED: Acetaminophen 325 MG TABLET PO PRN (22:33)
[2019-05-30] MEDS ORDERED: Ringers Solution, Lactated 1,000 ML IVC SCH (22:45)
[2019-05-30] MEDS: Ringers Solution, Lactated 1,000 ML IVC SCH (23:06)
[2019-05-31] MEDS ORDERED: *HR* Metoprolol 5 MG/5 ML VIAL IVP ONE ×2 (00:14→00:19)
[2019-05-31 01:21] LABS: Basophils % 0.8 %; Immature Granulocytes % 0.8 % (0-4); Red Cell Distribution Width 13.7 % (11.5-14.5)
[2019-05-31 01:22] LABS: Hematocrit 33.3 % (37.5-50.1); Hemoglobin 11.1 g/dL (12.9-16.9); Lymphocytes # 0.3 K/mcL (0.6-4.6); Lymphocytes % 26.2 %; Mean Corpuscular HGB Conc 33.3 g/dL (31.6-35.5); Mean Corpuscular Hemoglobin 29.3 pg (28.0-33.3); Mean Corpuscular Volume 87.9 fL (83.0-100.0); Mean Platelet Volume 11.2 fL (9.4-12.4); Monocytes # 0.1 K/mcL (0.0-1.3); Neutrophils # 0.8 K/mcL (1.6-8.9); Red Blood Count 3.79 M/mcL (4.19-5.50); Segmented Neutrophils % 63.2 %; White Blood Count 1.2 K/mcL (4.3-11.1)
[2019-05-31 01:27] LABS: Platelet Count 80 K/mcL (140-400)
[2019-05-31 01:41] LABS: Alanine Aminotransferase 197 Units/L (7-52); Albumin/Globulin Ratio 1.2 (1.1-2.2); Alkaline Phosphatase 216 Units/L (34-104); Aspartate Amino Transferase 129 Units/L (13-39); BUN/Creatinine Ratio 11 (6-26); Bilirubin,Direct 0.7 mg/dL (0.0-0.2); Bilirubin,Indirect 0.4 mg/dL (0.0-1.2); Bilirubin,Total 1.1 mg/dL (0.3-1.0); Blood Urea Nitrogen 9 mg/dL (8-23); Calcium 7.7 mg/dL (8.6-10.3); Carbon Dioxide 24 mEq/L (23-29); Chloride 102 mEq/L (98-107); Globulin 2.5 g/dL (2.4-3.5); Glucose 141 mg/dL (70-105); Osmolality,Calculated 271 (280-300); Sodium 130 mEq/L (136-145); Total Protein 5.5 g/dL (6.4-8.9); eGFR For African Americans > 60 (> 60); eGFR For Non-African Americans > 60 (> 60)
[2019-05-31 01:48] LABS: Adenovirus Not Detected (Not Detect); Coronavirus 229E Not Detected (Not Detect); Coronavirus HKU1 Not Detected (Not Detect); Coronavirus NL63 Not Detected (Not Detect); Coronavirus OC43 Not Detected (Not Detect); Human Metapneumovirus Not Detected (Not Detect); Human Rhinovirus/Enterovirus Not Detected (Not Detect); Influenza A Subtype 2009 H1 Not Detected (Not Detect); Influenza A Untypeable Not Detected (Not Detect); Influenza B Not Detected (Not Detect); Parainfluenza Virus 1 Not Detected (Not Detect); Parainfluenza Virus 2 Not Detected (Not Detect)
[2019-05-31 01:49] LABS: Bordetella Pertussis Not Detected (Not Detect); Chlamydophila pneumoniae Not Detected (Not Detect); Mycoplasma pneumoniae Not Detected (Not Detect); Parainfluenza Virus 3 Not Detected (Not Detect); Parainfluenza Virus 4 Not Detected (Not Detect); Respiratory Syncytial Virus Not Detected (Not Detect)
[2019-05-31 02:24] LABS: Hepatitis B Surface Antigen Nonreactive (Nonreactive)
[2019-05-31 02:52] LABS: Hepatitis B Core IgM Nonreactive (Nonreactive)
[2019-05-31 02:53] LABS: HIV-1&2 Antibody & p24 Ag Nonreactive (Nonreactive); Hepatitis C Virus Antibody Nonreactive (Nonreactive)
[2019-05-31 02:55] LABS: Hepatitis A Antibody IgM Nonreactive (Nonreactive)
[2019-05-31] MEDS: Ringers Solution, Lactated 1,000 ML IVC SCH (03:18)
[2019-05-31 04:06] LABS: Platelet Estimate Decreased (Normal)
[2019-05-31 05:33] LABS: Amphetamine Screen,Urine Negative ng/mL (Cutoff=1000); Barbiturate Screen,Urine Negative ng/mL (Cutoff=200); Benzodiazepines Screen,Urine Negative ng/mL (Cutoff=200); Cannabinoid Screen,Urine Negative ng/mL (Cutoff = 50); Cocaine Screen,Urine Negative ng/mL (Cutoff= 300); Opiate Screen,Urine Negative ng/mL (Cutoff=300); Phencyclidine Screen,Urine Negative ng/mL (Cutoff=25)
[2019-05-31] MEDS: Multivit/Ca/Min/Fe/FA 1 TAB TABLET PO SCH (07:36)
[2019-05-31] MEDS: Aspirin Enteric Coated 81 MG Tablet PO SCH (07:36)
[2019-05-31] MEDS: Ibuprofen 600 MG TABLET PO PRN ×2 (07:42→18:29)
[2019-05-31] MEDS: Fluticasone Propionate Nasal 50 MCG/SPRAY BOTTLE NS PRN (11:44)
[2019-05-31] MEDS: Doxycycline 100 MG in 0.9 % Sodium Chloride Mini Bag 100 ML IVPB SCH (18:24)
[2019-05-31] MEDS: Ondansetron 4 MG/2 ML VIAL IVP PRN (18:30)
[2019-05-31] MEDS ORDERED: NON-FORMULARY MEDICATION 1 EACH EACH (Potassium 99 MG) PO SCH (21:00)
[2019-06-01] MEDS: Doxycycline 100 MG in 0.9 % Sodium Chloride Mini Bag 100 ML IVPB SCH ×2 (05:43→18:06)
[2019-06-01 06:30] LABS: Immature Reticulocyte % 11.4 % (11.0-38.0); Retculocyte # 0.04 M/mcL (0.05-0.10)
[2019-06-01 06:32] LABS: Mean Corpuscular Hemoglobin 29.4 pg (28.0-33.3)
[2019-06-01 06:33] LABS: Hemoglobin 11.1 g/dL (12.9-16.9); Lymphocytes # 0.6 K/mcL (0.6-4.6); Mean Corpuscular HGB Conc 32.6 g/dL (31.6-35.5); Mean Corpuscular Volume 89.9 fL (83.0-100.0); Mean Platelet Volume 12.1 fL (9.4-12.4); Red Blood Count 3.78 M/mcL (4.19-5.50); Red Cell Distribution Width 13.7 % (11.5-14.5); White Blood Count 1.6 K/mcL (4.3-11.1)
[2019-06-01 06:34] LABS: Platelet Count 61 K/mcL (140-400)
[2019-06-01 06:56] LABS: Alanine Aminotransferase 301 Units/L (7-52); Albumin 3.1 g/dL (3.5-5.7); Albumin/Globulin Ratio 1.2 (1.1-2.2); Alkaline Phosphatase 265 Units/L (34-104); Aspartate Amino Transferase 228 Units/L (13-39); BUN/Creatinine Ratio 11 (6-26); Blood Urea Nitrogen 9 mg/dL (8-23); Calcium 8.2 mg/dL (8.6-10.3); Carbon Dioxide 28 mEq/L (23-29); Chloride 105 mEq/L (98-107); Globulin 2.5 g/dL (2.4-3.5); Glucose 119 mg/dL (70-105); Lactate Dehydrogenase 383 Units/L (140-271); Osmolality,Calculated 280 (280-300); Potassium 4.1 mEq/L (3.5-5.1); Sodium 135 mEq/L (136-145); Total Protein 5.6 g/dL (6.4-8.9); Transferrin 184 mg/dL (203-362); eGFR For African Americans > 60 (> 60); eGFR For Non-African Americans > 60 (> 60)
[2019-06-01 07:09] LABS: Ferritin 1036 ng/mL (20-250)
[2019-06-01 07:12] LABS: % Iron Saturation 14 % (20-55); Iron 35 mcg/dL (65-175)
[2019-06-01 07:14] LABS: Monocytes # 0.1 K/mcL (0.0-1.3); Neutrophils # 0.9 K/mcL (1.6-8.9)
[2019-06-01 07:16] LABS: Platelet Estimate Decreased (Normal); Polychromasia 1+ (Not Present); Reactive Lymphocytes Present (Not Present)
[2019-06-01] MEDS: amLODIPine 5 MG TABLET PO SCH (08:02)
[2019-06-01] MEDS: Multivit/Ca/Min/Fe/FA 1 TAB TABLET PO SCH (08:03)
[2019-06-01] MEDS: Aspirin Enteric Coated 81 MG Tablet PO SCH (08:03)
[2019-06-01] MEDS: Ondansetron 4 MG/2 ML VIAL IVP PRN (08:03)
[2019-06-01] MEDS: Fluticasone Propionate Nasal 50 MCG/SPRAY BOTTLE NS PRN (08:14)
[2019-06-01] MEDS: Ibuprofen 600 MG TABLET PO PRN (10:13)
[2019-06-02] MEDS: Fluticasone Propionate Nasal 50 MCG/SPRAY BOTTLE NS PRN (06:17)
[2019-06-02 06:28] LABS: Basophils # 0.1 K/mcL (0.0-0.2); Basophils % 0.9 %; Hematocrit 35.7 % (37.5-50.1); Hemoglobin 11.9 g/dL (12.9-16.9); Immature Granulocytes % 0.4 % (0-4); Lymphocytes # 2.2 K/mcL (0.6-4.6); Lymphocytes % 40.6 %; Mean Corpuscular HGB Conc 33.3 g/dL (31.6-35.5); Mean Corpuscular Volume 86.9 fL (83.0-100.0); Mean Platelet Volume 12.2 fL (9.4-12.4); Monocytes # 0.4 K/mcL (0.0-1.3); Monocytes % 7.6 %; Neutrophils # 2.7 K/mcL (1.6-8.9); Platelet Count 101 K/mcL (140-400); Red Blood Count 4.11 M/mcL (4.19-5.50); Red Cell Distribution Width 13.9 % (11.5-14.5); Segmented Neutrophils % 50.5 %
[2019-06-02] MEDS: Doxycycline 100 MG in 0.9 % Sodium Chloride Mini Bag 100 ML IVPB SCH ×2 (06:34→17:50)
[2019-06-02 06:41] LABS: White Blood Count 5.3 K/mcL (4.3-11.1)
[2019-06-02 06:46] LABS: Alanine Aminotransferase 338 Units/L (7-52); Albumin 3.3 g/dL (3.5-5.7); Albumin/Globulin Ratio 1.2 (1.1-2.2); Alkaline Phosphatase 331 Units/L (34-104); Aspartate Amino Transferase 222 Units/L (13-39); BUN/Creatinine Ratio 13 (6-26); Bilirubin,Total 0.8 mg/dL (0.3-1.0); Blood Urea Nitrogen 10 mg/dL (8-23); Calcium 8.3 mg/dL (8.6-10.3); Carbon Dioxide 24 mEq/L (23-29); Chloride 102 mEq/L (98-107); Globulin 2.7 g/dL (2.4-3.5); Glucose 130 mg/dL (70-105); Magnesium 1.8 mg/dL (1.6-2.6); Osmolality,Calculated 275 (280-300); Potassium 4.1 mEq/L (3.5-5.1); Sodium 132 mEq/L (136-145); eGFR For African Americans > 60 (> 60); eGFR For Non-African Americans > 60 (> 60)
[2019-06-02 07:26] LABS: Platelet Estimate Decreased (Normal); Reactive Lymphocytes Present (Not Present)
[2019-06-02] MEDS: amLODIPine 5 MG TABLET PO SCH (08:23)
[2019-06-02] MEDS: Aspirin Enteric Coated 81 MG Tablet PO SCH (08:36)
[2019-06-02] MEDS: Multivit/Ca/Min/Fe/FA 1 TAB TABLET PO SCH (08:37)
[2019-06-02] MEDS: Ibuprofen 600 MG TABLET PO PRN (08:40)
[2019-06-02 23:18] LABS: Kappa Qnt Free Light Chains 2.08 mg/dL (0.33-1.94); Lambda Qnt Free Light Chains 1.76 mg/dL (0.57-2.63)
[2019-06-03 06:03] LABS: Basophils # 0.1 K/mcL (0.0-0.2); Basophils % 0.8 %; Eosinophils % 0.6 %; Hematocrit 33.6 % (37.5-50.1); Hemoglobin 11.2 g/dL (12.9-16.9); Immature Granulocytes % 0.3 % (0-4); Lymphocytes # 3.3 K/mcL (0.6-4.6); Lymphocytes % 52.7 %; Mean Corpuscular HGB Conc 33.3 g/dL (31.6-35.5); Mean Corpuscular Hemoglobin 29.3 pg (28.0-33.3); Monocytes # 0.4 K/mcL (0.0-1.3); Monocytes % 6.6 %; Neutrophils # 2.5 K/mcL (1.6-8.9); Platelet Count 139 K/mcL (140-400); Red Blood Count 3.82 M/mcL (4.19-5.50); Red Cell Distribution Width 14.3 % (11.5-14.5); White Blood Count 6.3 K/mcL (4.3-11.1)
[2019-06-03 06:21] LABS: Alanine Aminotransferase 288 Units/L (7-52); Albumin 3.2 g/dL (3.5-5.7); Alkaline Phosphatase 279 Units/L (34-104); Aspartate Amino Transferase 143 Units/L (13-39); BUN/Creatinine Ratio 17 (6-26); Bilirubin,Total 0.6 mg/dL (0.3-1.0); Blood Urea Nitrogen 12 mg/dL (8-23); Calcium 8.5 mg/dL (8.6-10.3); Carbon Dioxide 26 mEq/L (23-29); Chloride 104 mEq/L (98-107); Glucose 122 mg/dL (70-105); Osmolality,Calculated 281 (280-300); Potassium 4.2 mEq/L (3.5-5.1); Sodium 135 mEq/L (136-145); Total Protein 5.9 g/dL (6.4-8.9); eGFR For African Americans > 60 (> 60); eGFR For Non-African Americans > 60 (> 60)
[2019-06-03 06:22] LABS: Albumin/Globulin Ratio 1.2 (1.1-2.2); Globulin 2.7 g/dL (2.4-3.5)
[2019-06-03] MEDS: Doxycycline 100 MG in 0.9 % Sodium Chloride Mini Bag 100 ML IVPB SCH (06:25)
[2019-06-03 06:27] LABS: Platelet Estimate Normal (Normal); Reactive Lymphocytes Present (Not Present)
[2019-06-03] MEDS ORDERED: Diltiazem CD (24hr) 120 MG CAPSULE PO SCH (09:00)
[2019-06-03] MEDS: Multivit/Ca/Min/Fe/FA 1 TAB TABLET PO SCH (09:37)
[2019-06-03] MEDS: Aspirin Enteric Coated 81 MG Tablet PO SCH (09:37)
[2019-06-03 11:40] LABS: Immunoglobulin A 187 mg/dL (68-408); Immunoglobulin G 635 mg/dL (768-1632); Immunoglobulin M 157 mg/dL (35-263)
[2019-06-03 11:46] LABS: Parvovirus B19, IgG 4.29 IV (<=0.89); Parvovirus B19, IgM 0.17 IV (<=0.89)
[2019-06-03 14:47] VITALS: BP 126/70
[2019-06-03 16:48] LABS: Epstein Barr Virus Qnt Source BLOOD
[2019-06-03] MEDS ORDERED: *HR* Rivaroxaban 10 MG TABLET PO SCH (17:00)
[2019-06-03 20:18] LABS: BCR-ABL1 Specimen Source NOT SPECIFIED
[2019-06-03] MEDS ORDERED: Doxycycline 100 MG CAPSULE PO SCH (21:00)
[2019-06-03 21:02] LABS: Alpha 2 Globulin (PEP) 0.86 g/dL (0.48-1.05); Beta Globulin (PEP) 0.77 g/dL (0.48-1.10)
[2019-06-04 09:43] LABS: EBV Quant Interpretation DETECTED (Not Detected); EBV Quant Log 3.1 log
[2019-06-04 09:43] LABS: IFE Reflexed NOT DONE
[2019-06-04 09:53] LABS: Cytomegalovirus DNA (PCR) NOT DETECTED
[2019-06-04 09:53] LABS: California Encephalitis IgG < 1:16 (< 1:16); California Encephalitis IgM < 1:16 (< 1:16); E.Equine Encephalitis IgG < 1:16 (< 1:16); E.Equine Encephalitis IgM < 1:16 (< 1:16); St. Louis Encephalitis IgG < 1:16 (< 1:16); St. Louis Encephalitis IgM < 1:16 (< 1:16); W.Equine Encephalitis IgG < 1:16 (< 1:16); W.Equine Encephalitis IgM < 1:16 (< 1:16)
[2019-06-05 10:21] LABS: Brucella Antibody Total <1:20 (<1:20)
[2019-06-05 10:22] LABS: Anaplasma phagocytophilum IgG <1:80 (<1:80); Anaplasma phagocytophilum IgM < 1:16 (< 1:16)
== END 2019-06-03 17:44 | disposition home or self-care (01) ==
LOC: EMEROOARM 17:31 → 3ANU 17:31 → SUATTDRO 22:05 → 3ANU 23:09
PROVIDERS: ADMIT Internal Medicine; ATTEND Internal Medicine